=== PATIENT | female | born 1980 | race Caucasian/White ===

== ENCOUNTER 2017-10-20 16:49 | Emergency (ER) | payer SELFPAY | END 2017-10-20 17:45 | disposition home or self-care (01) | LOC: NAV ERS 16:49 | DX: J06.9 Acute upper respiratory infection, unspecified (principal); J45.909 Unspecified asthma, uncomplicated; F41.9 Anxiety disorder, unspecified; F17.200 Nicotine dependence, unspecified, uncomplicated | CPT/HCPCS: 99283 ==

== ENCOUNTER 2017-11-20 12:13 | Emergency (ER) | payer SELFPAY | END 2017-11-20 12:50 | disposition home or self-care (01) | LOC: NAV ERS 12:13 | DX: M94.0 Chondrocostal junction syndrome [Tietze] (principal); J45.909 Unspecified asthma, uncomplicated; F41.9 Anxiety disorder, unspecified; F17.200 Nicotine dependence, unspecified, uncomplicated | CPT/HCPCS: 93005 ==